=== PATIENT | female | born 1955 | race African-American/Black ===

== ENCOUNTER 2020-08-22 01:06 | Observation (INO) | payer OTHER ==
[~2020-08-22] VITALS: Ht 162.6 cm; Wt 92.0 kg
[~2020-08-22 01:06] MED LIST changes: -ALBU2.5V8 IH; -ALLO300T PO; -FLUT1DIS3 IH; -FLUT9.9S NS; -OMEP40CA45 PO; -OXYB10TA26 PO; -PROP225T2 PO; -RIVA20TA2 PO
[2020-08-22 01:29] VITALS: BP 153/102
[2020-08-22] MEDS: MORPHINE SULFATE 2 MG/ML DISP.SYRIN. IV PRN ×3 (02:02→08:12)
[2020-08-22] MEDS ORDERED: FLUT1DIS3 IH (02:19)
[2020-08-22] MEDS ORDERED: OMEP40CA45 PO (02:19)
[2020-08-22] MEDS ORDERED: FLUT9.9S NS (02:19)
[2020-08-22] MEDS ORDERED: ALLO300T PO (02:19)
[2020-08-22] MEDS ORDERED: RIVA20TA2 PO (02:19)
[2020-08-22] MEDS ORDERED: OXYB10TA26 PO (02:19)
[2020-08-22] MEDS ORDERED: ALBU2.5V8 IH (02:19)
[2020-08-22] MEDS ORDERED: PROP225T2 PO (02:19)
[2020-08-22 07:36] VITALS: BP 136/82
[2020-08-22] MEDS ORDERED: ONDANSETRON ODT 4 MG TAB.RAPDIS PO PRN (07:45)
[2020-08-22] MEDS ORDERED: ALBUTEROL SULFATE 2.5 MG/3 ML NEBU. IH PRN (07:45)
[2020-08-22] MEDS ORDERED: NON FORMULARY ITEM (Fluticasone/Salmeterol (Advair 250-50 Diskus) 1 PUFF) IH PRN (07:45)
[2020-08-22 07:46] LABS: BASO # 0.1 x10^3/uL (0.0-0.2); BASO % 1 % (0-3); EOS # 0.1 x10^3/uL (0.0-0.7); EOS % 1 % (0-3); HEMATOCRIT 38.3 % (36.0-47.0); HEMOGLOBIN 12.3 g/dL (12.0-15.5); LYMPH # 3.1 x10^3/uL (1.0-4.8); LYMPH % 40 % (24-48); MEAN CORPUSCULAR HEMOGLOBIN 28 pg (25-35); MEAN CORPUSCULAR HGB CONC 32 g/dL (31-37); MEAN CORPUSCULAR VOLUME 86 fL (79-100); MONO # 0.6 x10^3/uL (0.0-1.1); MONO % 7 % (0-9); NEUT % 51 % (31-73); PLATELET COUNT 243 x10^3/uL (140-400); RED BLOOD COUNT 4.46 x10^6/uL (3.50-5.40); RED CELL DISTRIBUTION WIDTH 13.7 % (11.5-14.5); WHITE BLOOD COUNT 7.8 x10^3/uL (4.0-11.0)
[2020-08-22 08:02] LABS: ALBUMIN 3.3 g/dL (3.4-5.0); ALBUMIN/GLOBULIN RATIO 0.8 (1.0-1.7); CALCIUM 8.8 mg/dL (8.5-10.1); GFR 67.8; POTASSIUM 3.8 mmol/L (3.5-5.1); TOTAL BILIRUBIN 0.5 mg/dL (0.2-1.0); TOTAL PROTEIN 7.2 g/dL (6.4-8.2)
[2020-08-22] MEDS: ALLOPURINOL 300 MG TABLET. PO SCH (08:12)
[2020-08-22] MEDS: OXYBUTYNIN CHLORIDE 5 MG TABLET PO SCH ×2 (08:12→20:51)
[2020-08-22] MEDS: PANTOPRAZOLE 40 MG TABLET. PO SCH (08:12)
[2020-08-22] MEDS: ALBUTEROL SULFATE 2.5 MG/3 ML NEBU. NEB SCH ×3 (10:06→20:00)
--- NOTE | 2020-08-22 10:48 | EKG ---
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
[2020-08-22 11:22] VITALS: BP 130/84
[2020-08-22] MEDS: FLUTICASONE 50MCG/NASAL SPRAY 16GM BOTTLE. NS SCH ×2 (11:26→20:52)
[2020-08-22] MEDS: PROPAFENONE 150 MG TABLET. PO SCH ×2 (11:27→20:51)
[2020-08-22 13:47] LABS: BACTERIA,URINE 0 /HPF (0-FEW); BILIRUBIN,URINE NEG (NEG); CLARITY,URINE CLEAR; COLOR,URINE YELLOW; GLUCOSE,URINE NEG (NEG); NITRITE,URINE NEG (NEG); RBC,URINE OCC /HPF (0-2); SQUAMOUS EPITHELIAL CELL,UR FEW /LPF; UROBILINOGEN,URINE 0.2 mg/dL (0.2 mg/dL)
--- NOTE | 2020-08-22 14:39 | PN ---
DATE: 08/22/2020 SUBJECTIVE: A 65-year-old female in with severe weakness in her legs and also marked weakness in performing any task. The patient has been seen by Dr. Menendez on that situation. We will go ahead and continue workup with physical and occupational therapy [facility]. The patient is in severe pain of 9/10 and receiving pain medication for such. She has severe pain in her legs and weakness. Her C-reactive protein was a little bit high at 3.7, albumin low at 3.3. Rest of the labs are basically unremarkable. We will continue to monitor the patient accordingly and make further evaluation as indicated. We will again consult with Neurology to see if there are any problems that can be further evaluated. She has had a CT of her head, lumbar spine CT and awaiting results on those. IMPRESSION: Multiple falls, severe weakness to the lower extremities, unable to support herself, severe pain to the lower extremities, moderate protein malnutrition, elevated CRP. PLAN: Continue with present pain management, fluids and make further evaluation on her. She did have one pulse rate of 137, which came down to 65. SHRAVAN/BEATRIZ/[facility] [place] DR: SHRAVAN/lucas TID: [id number]
[2020-08-22 14:46] VITALS: BP 121/77
--- NOTE | 2020-08-22 15:32 | RAD ---
EXAM: CT Head without IV contrast CLINICAL HISTORY: change in gait and weakness COMPARISON: None. TECHNIQUE: Routine CT of the head without contrast. PQRS compliance statement - One or more of the following individualized dose reduction techniques wer e utilized for this study: 1. Automated exposure control 2. Adjustment of the mA and/or kV according to patient size 3. Use of iterative reconstruction technique FINDINGS: There is no evidence of hemorrhage, mass or extra-axial fluid collection. Russell-white differentiation is maintained with no evidence of edema. There is no mass effect or shift of the intracranial structures. The ventricles, basilar cisterns and cortical sulci are normal in size and configuration for the fidelina ents stated age. The cerebellum and brainstem are unremarkable. The calvarium demonstrates no evidence of fracture or focal lesion. There is normal aeration of the visualized paranasal sinuses and mastoid air cells. The visualized portions of the orbits are normal. IMPRESSION: No evidence for acute intracranial process. Electronically signed by: Rafael Shaw MD (08/22/2020 3:29 PM) [id number]
--- NOTE | 2020-08-22 15:47 | RAD ---
EXAM: CT lumbar spine without IV contrast CLINICAL HISTORY: change in gait and weakness COMPARISON: None available. TECHNIQUE: Helical CT was performed through the lumbar spine. Axial, coronal and sagittal reformatted images were generated. PQRS compliance statement - One or more of the following individualized dose reduction techniques wer e utilized for this study: 1. Automated exposure control 2. Adjustment of the mA and/or kV according to patient size 3. Use of iterative reconstruction technique FINDINGS: Transitional lumbosacral anatomy with partial localization of S1. Vertebral body heights are preserved. Disc heights are preserved. No spondylolisthesis. Mild generali zed disc bulge L4-5 results in moderate central canal stenosis and mild neural foraminal narrowing bi laterally. Mild degenerative disease at other levels. Vascular calcifications are seen. IMPRESSION: 1. No acute fracture or subluxation. 2. Multilevel degenerative changes as above, most prominent at L4-5. Electronically signed by: Rafael Shaw MD (08/22/2020 3:45 PM) [id number]
[2020-08-22] MEDS ORDERED: RIVAROXABAN 10 MG TABLET. PO SCH (17:00)
[2020-08-22] MEDS: BUDESONIDE 0.5 MG/2 ML NEBU NEB SCH (20:00)
[2020-08-22 20:09] VITALS: BP 103/70
[2020-08-22] MEDS: HYDROcodone/APAP 5/325MG 1 TAB TABLET PO PRN (20:52)
--- NOTE | 2020-08-22 21:02 | CONS ---
NEUROLOGY CONSULTATION REFERRING PHYSICIAN: Dr. Robin. REASON FOR CONSULTATION: Pain, numbness and tingling of the arms and legs. HISTORY OF PRESENT ILLNESS: This is a 65-year-old right-handed -[place]ub[place] female was admitted through the Emergency Room after she presented with chief complaints of generalized weakness, malaise, joint pain, lower back pain and neck pain as well. These symptoms have been present intermittently for 2 months, but have been worsened in the last week or so. The patient also complains of intermittent dizziness described as vertigo in the Emergency Room. Currently, her concern about the pain of the right shoulder and recently she also complains of pain of the neck radiating to the shoulder blades, more prominent on the right side. She also complains of right hip pain radiating into the right lower extremity. She denies headaches, visual disturbances, nausea, vomiting, chest pain, shortness of breath or palpitation, dysarthria or dysphagia. She also complains of generalized weakness and intermittent sore throat. PAST MEDICAL HISTORY: Significant for weakness of the right upper extremity secondary to spinal cord injury in the past as she underwent 2 cervical spine fusion. She also complains of intermittent lower back pain. Lumbosacral spine CT and head CT has been performed, but the results are still pending. Paroxysmal atrial fibrillation, GERD, chronic low back pain, asthma. PAST SURGICAL HISTORY: Positive for a left knee and foot surgery, right toe repair, right oophorectomy, tubal ligation and 2 cervical spine fusion anteriorly and posteriorly performed in 1997 and 2007 respectively. FAMILY HISTORY: Noncontributory. SOCIAL HISTORY: The patient is . She has 1 child. She denies smoking, alcohol drinking or illicit drug use. She works at present at the [employer]. REVIEW OF SYSTEMS: A 12-point review of systems was performed and as mentioned above in history of present illness. CURRENT HOME MEDICATIONS: Include Pulmicort nebulizer, albuterol inhaler, Xarelto, Rythmol, oxybutynin, Flonase, allopurinol, pantoprazole, Tylenol, Lortab. ALLERGIES: CODEINE AND MEPERIDINE. PHYSICAL EXAMINATION: GENERAL: Obese -[place] female in no acute distress. She weighs 92 kilos. VITAL SIGNS: Blood pressure 136/82, respiratory rate 20, pulse is 114, oxygen saturation 98% on room air. HEENT: Normocephalic, atraumatic, otherwise unremarkable. NECK: Supple, negative for carotid bruit, lymphadenopathy or thyromegaly. LUNGS: Clear to A and P. CARDIOVASCULAR: Regular rate and rhythm, normal S1, S2. There is no S3, S4 or murmur. ABDOMEN: Soft. Bowel sounds positive. EXTREMITIES: Negative for cyanosis, clubbing or pedal edema. NEUROLOGIC: Mental status: The patient is alert and oriented x3. Speech is fluent. There is no language dysfunction. Memory, judgment and abstracting thinking are normal. The patient denies hallucination or delusion. Cranial nerves: Visual pulido are full. The pupils are reactive to light and accommodation. The extraocular movements are intact. There is no nystagmus. There is no facial motor or sensory deficit. Hearing is intact bilaterally. The palate is elevated symmetrically. Sternocleidomastoid muscles are powerful bilaterally. The patient shrugs her shoulders symmetrically, protrudes her tongue in the midline without fasciculation or atrophy. Motor examination revealed focal atrophy of the right hand and with contraction secondary to a cervical spinal cord injury and postoperative changes. The strength was 4/5 in the right upper extremity and 5/5 to the left upper extremity. The strength was 4/5 in the right lower extremity and 5/5 in the left lower extremity. Sensory examination revealed a diminished pinprick and light touch senses over the right upper and lower extremities, but normal throughout. Deep tendon reflexes are symmetric and hypoactive with absent Achilles responses. GAIT: The patient has steady stand and she walks slowly without assistance. LABORATORY DATA: CBC revealed blood cells of 7.8 thousand, hemoglobin 12.3, hematocrit 38.3, platelet count 243,000. Chemistry reveals sodium of 143, potassium 3.8, chloride 108, CO2 of 24, BUN 16, creatinine 1, glucose is 98, oxygen sat 98 and calcium 8.8. Liver enzymes are normal. IMPRESSION: 1. Generalized weakness and joint pain, probably multifactorial, rule out cervical radiculopathy with complications of a spinal cord injury from previous cervical fusions. 2. Multiple medical problems include paroxysmal atrial fibrillation, gastroesophageal reflux disease, generalized arthritis, obesity, asthma. RECOMMENDATIONS: 1. Physical therapy evaluation. 2. Continue current home medication and care. 3. We will arrange for EMG/NCS of the upper and lower extremities to rule out entrapment neuropathy versus radiculopathy. BYRON/CHAITANYA DR: Berry TID: [id number]
[2020-08-23 06:42] LABS: CALCIUM 8.9 mg/dL (8.5-10.1); CREATININE 1.1 mg/dL (0.6-1.0); GFR 60.7; POTASSIUM 4.3 mmol/L (3.5-5.1)
[2020-08-23 07:09] VITALS: BP 121/72
[2020-08-23] MEDS: ALBUTEROL SULFATE 2.5 MG/3 ML NEBU. NEB SCH ×2 (07:52→10:48)
[2020-08-23] MEDS: PANTOPRAZOLE 40 MG TABLET. PO SCH (08:08)
[2020-08-23] MEDS: OXYBUTYNIN CHLORIDE 5 MG TABLET PO SCH (08:08)
[2020-08-23] MEDS: ALLOPURINOL 300 MG TABLET. PO SCH (08:08)
[2020-08-23] MEDS: PROPAFENONE 150 MG TABLET. PO SCH (08:09)
[2020-08-23] MEDS: FLUTICASONE 50MCG/NASAL SPRAY 16GM BOTTLE. NS SCH (08:17)
[2020-08-23 09:42] VITALS: BP 116/79
[2020-08-23 09:43] VITALS: BP 138/93
[2020-08-23] MEDS: BUDESONIDE 0.5 MG/2 ML NEBU NEB SCH (10:49)
[2020-08-23] MEDS: HYDROcodone/APAP 5/325MG 1 TAB TABLET PO PRN (13:08)
--- NOTE | 2020-08-23 15:15 | PN ---
SUBJECTIVE: The patient continues to have pain, numbness and paresthesia confined to the right upper and lower extremities. She stated her pain level is 6/10 and that is normal for her. She denies dizziness this morning. There are no orthostatic changes or hypertension. She denies headaches, visual disturbances, nausea, vomiting, chest pain, shortness of breath or palpitation, dysarthria or dysphagia. OBJECTIVE: GENERAL: Moderately obese female in no acute distress. VITAL SIGNS: Blood pressure 121/72, respiratory rate 20, pulse is 60, afebrile, oxygen saturation 97% on room air. HEENT: Normocephalic and atraumatic, otherwise unremarkable. NECK: Supple. Negative for carotid bruit, lymphadenopathy or thyromegaly. LUNGS: Clear to A and P. HEART: Regular rate and rhythm, normal S1 and S2. There is no S3, S4 or murmur. ABDOMEN: Soft. Bowel sounds positive. EXTREMITIES: Negative for cyanosis, clubbing or pedal edema. NEUROLOGIC: Normal mental status and intact cranial nerves. The strength is 4/5 on the right upper and lower extremities, probably secondary to pain and previous cervical myelopathy. Sensory examination revealed normal pinprick and light touch senses. Deep tendon reflexes were symmetric and hypoactive with absent Achilles responses. Gait: The stance is steady. The patient walks in the room without assistance. IMPRESSION: 1. Right upper extremity weakness and paresthesia, probably due to a previous spinal cord injury with contraction of the right hand secondary to cervical myelopathy. 2. Weakness and paresthesia of the right lower extremity, probably due to a lumbosacral radiculopathy. RECOMMENDATION: 1. Continue with current management including physical therapy and home medications. 2. We will arrange for EMG/NCS of the right upper and lower extremities in my office. BYRON/MARGARET SCHAFER: Berry TID: [id number]
== END 2020-08-23 14:00 | disposition home or self-care (01) ==
LOC: INTOOBSV 01:06 → 1 SOUTH 01:06
PROVIDERS: ADMIT Family Medicine; ATTEND Family Medicine
DX: R53.1 Weakness (principal); M17.12 Unilateral primary osteoarthritis, left knee; M54.5 Low back pain; M25.511 Pain in right shoulder; M79.651 Pain in right thigh; M79.652 Pain in left thigh; I48.0 Paroxysmal atrial fibrillation; J45.909 Unspecified asthma, uncomplicated; K21.9 Gastro-esophageal reflux disease without esophagitis; E66.9 Obesity, unspecified; M54.17 Radiculopathy, lumbosacral region; R29.6 Repeated falls; E44.0 Moderate protein-calorie malnutrition; Z90.49 Acquired absence of other specified parts of digestive tract; Z98.51 Tubal ligation status; Z79.899 Other long term (current) drug therapy; Z98.890 Other specified postprocedural states; Z91.81 History of falling; Z90.721 Acquired absence of ovaries, unilateral; Z68.34 Body mass index [BMI] 34.0-34.9, adult
CPT/HCPCS: 36415; 70450; 72131; 80048; 80053; 81001; 83735; 84443; 85025; 85651; 86140; 86304; 87086; 93005; 94640; 96374; 96376; 97165; 97530; G0378; G0379; J2270; J7613

== ENCOUNTER → 2020-08-22 | Emergency (ER) | payer OTHER ==
[2015-07-01 16:45] VITALS: BP 114/66
[~2020-08-22] MED LIST: ALBU2.5V8 IH; ALLO100T PO; ALLO300T PO; CETI10TA74 PO; FLUT1DIS3 IH; FLUT9.9S NS; HYDR-3165 PO; MECL-75 PO; OMEP40CA45 PO; ONDA4TAB10 PO; OXYB10TA26 PO; OXYB5TAB10 PO; PROP150T PO; PROP225T2 PO; RIVA20TA2 PO
== END | disposition left against medical advice (07) ==
LOC: ER 00:04
DX: M79.10 Myalgia, unspecified site (principal); Z53.21 Procedure and treatment not carried out due to patient leaving prior to being seen by health care provider

== ENCOUNTER → 2021-07-04 | Outpatient (CLI) | payer OTHER ==
[~2021-07-04] MED LIST changes: +ALBU2.5V8 IH; +ALLO300T PO; +FLUT1DIS3 IH; +FLUT9.9S NS; +OMEP40CA7 PO; +OXYB10TA26 PO; +PROP225T2 PO; +RIVA20TA2 PO
--- NOTE | 2021-07-04 13:50 | RAD ---
EXAM: Bilateral knees, 3 views. HISTORY: Pain. COMPARISON: None. FINDINGS: 3 views of both knees are obtained. There is moderate bilateral medial compartment joint sp jaden narrowing, subchondral sclerosis and spurring. There is no fracture, dislocation or subluxation. There is no significant joint effusion. IMPRESSION: Moderate medial compartment osteoarthritis of both knees. No acute osseous finding. Electronically signed by: Sulema Mayer MD (07/04/2021 1:48 PM) [id number]
== END ==
LOC: RAD 13:20
PROVIDERS: ATTEND Physician Assistant
DX: M17.0 Bilateral primary osteoarthritis of knee (principal); M76.892 Other specified enthesopathies of left lower limb, excluding foot; M76.891 Other specified enthesopathies of right lower limb, excluding foot
CPT/HCPCS: 73565; 73560-50